=== PATIENT | female | born 1975 | race Caucasian/White ===

== ENCOUNTER 2017-05-28 15:21 | Emergency (ER) | payer SELFPAY ==
[2017-05-28 16:22] LABS: BASOPHILS 0.4 % (0-2); EOSINOPHILS 2.6 % (0-7); HEMOGLOBIN 7.9 g/dL (12-16); IMMATURE GRANULOCYTES 0.3 % (0-5); MCHC 27.2 g/dL (31.0-37.0); MONOCYTES 6.1 % (2-11); NEUTROPHILS 52.6 % (40-80); PLATELET COUNT 700 10x3/uL (130-400); RBC 5.09 10x6/uL (4.00-5.40); RDW 20.7 % (11.5-14.5); WBC 10.3 10x3/uL (4.8-10.8)
[2017-05-28 16:28] LABS: MCH 15.5 pg (26.0-34.0)
[2017-05-28 16:39] LABS: ALBUMIN 4.4 g/dL (3.4-5.0); BILIRUBIN - TOTAL 0.27 mg/dL (0.2-1.3); CALCIUM 8.8 mg/dL (8.5-10.1); CARBON DIOXIDE 20.7 mmol/L (21.0-32.0); POTASSIUM - SERUM 3.7 mmol/L (3.5-5.1); PROTEIN - SERUM 7.9 g/dL (6.4-8.2)
[2017-07-16 09:48] VITALS: BMI 20.8
== END 2017-05-28 20:31 | disposition home or self-care (01) ==
LOC: D.ER 15:21
PROVIDERS: Family Medicine
DX: R50.9 Fever, unspecified (principal); R05 Cough; R07.81 Pleurodynia; Z86.2 Personal history of diseases of the blood and blood-forming organs and certain disorders involving the immune mechanism

== ENCOUNTER 2017-07-13 20:38 | Inpatient (IN) | payer MEDICAID ==
[~2017-07-13] VITALS: Ht 165.1 cm; Wt 56.7 kg
--- NOTE | ~2017-07-13 | HP ---
PATIENT: MALLIKA OJEDA MEDICAL RECORD: [id number] ACCOUNT: [id number] LOCATION:[facility].E10- : 71 ADMISSION DATE: 07/14/17 HISTORY AND PHYSICAL EXAMINATION HISTORY OF PRESENT ILLNESS: Ms. Ojeda is a 41-year-old white female that presents to the Emergency Room complaining of severe abdominal pain. She has had multiple abdominal surgeries for hernia repair with colon resection in the years. She is found to be severely anemic with a hemoglobin of 7.0, ER has transferred her couple of units. She has a history of chronic anemia and has had multiple GI workups in the past, the last was over 8 years ago and was negative. She states that her periods are very light and they only last a day or two, but are regular. She has been complaining of loss of epigastric pain. Due to the abdominal pain, she has been taking large doses of ibuprofen for the last several weeks. She complains of burning in her stomach. She is admitted at this time for a possible upper GI bleed, severe anemia, and evaluation of her abdominal pain. PAST MEDICAL HISTORY: Significant for chronic anemia. She has also had multiple surgeries for ventral hernia with a colon resection. She also has had her right tube and ovary removed. She just recently moved here from the [facility] 2 years ago. ALLERGIES: None known. HOME MEDICATIONS: No prescription meds at this time. SOCIAL HISTORY: The patient does not smoke. She drinks on a social basis. REVIEW OF SYSTEMS: Denies any weight loss. Complains of severe abdominal pain, which comes and goes, ranked it as a 10 upon admission to the ER last night. She has had nausea and vomiting. She said she has noticed some occasional bright red blood in her emesis in the past. No black or tarry stools. She has had some fatigue. PHYSICAL EXAMINATION: GENERAL: Alert and cooperative. HEENT: Sclerae nonicteric. NECK: Soft and supple. HEART: Regular. LUNGS: Clear. ABDOMEN: Soft. Scars from previous abdominal surgeries are noted. There is some midline tenderness. EXTREMITIES: Lower extremities reveal no edema. IMPRESSION: 1. Severe microcytic anemia. 2. Abdominal pain. 3. Heavy NSAID use. PLAN: Admit. Protonix drip. GI consult, if negative, may need hematology consult. See orders for plan. TRANSINT:[id number] Voice Confirmation ID: [id number] DOCUMENT ID: [id number] HISTORY AND PHYSICAL [id number] MALLIKA OJEDA MATTHEW DO at 1714 CC: [id number] DICTATION DATE: 07/14/17 1131 PATIENT SERVICES TECHNICIAN: 07/14/17 [address] [facility] [address] [id number]
--- NOTE | ~2017-07-13 | EC ---
PATIENT:MALLIKA OJEDA DATE OF SERVICE: 07/15/17 SEX: F MEDICAL RECORD: [id number] DATE OF : 71 LOCATION:[facility] AGE OF PATIENT: 41 ADMISSION DATE: 07/15/17 REFERRING PHYSICIAN: INTERPRETING PHYSICIAN: LAKESHA LARIOS MD ECHOCARDIOGRAM REPORT ECHO CHARGES Date: CLINICAL DIAGNOSIS: ECHOCARDIOGRAPHIC MEASUREMENTS (adult normal given) AC root (d.<3.7cm) cm LV Septum d (<1.2 cm> cm Valve Excursion cm LV Septum (systole) cm Left Atria (s.<4.0cm> cm LVPW d(<1.2cm) cm RV (d.<2.3cm) cm LVPW (sytole) cm LV diastole(<5.6CM) cm MV E-F(>70mm/sec) cm LV systole cm LVOT Diameter cm MV exc.(>10mm) cm Est.ejection fraction (50-75%) % DOPPLER: LVIT cm/sec A cm/sec E cm/sec LA cm/sec RVSP mmHg LVOT cm/sec AOP1/2T m/s Asc. Ao cm/sec RVOT cm/sec RA cm/sec PA cm/sec AV Gradient Peak mmHg AV Mean mmHg AV Area cm MV Gradient Peak mmHg MV Mean mmHg MV Area cm COMMENTS: Nurse Orthopaedic: Welder Manufacture: RITU# Pericardial Effusion DATE OF SERVICE: Adequate 2D echo, color flow, spectral Doppler and M-Mode. Borderline LVH. LV internal dimension is normal. Wall motion normal. EF was hyperdynamic greater than 60%. Aortic valve is tricuspid. No evidence of stenosis by Doppler interrogation. Left atrium is dilated at 4.5 cm. Mitral valve shows no prolapse. Trace MR. Right sided chamber size is grossly normal. Trace TR. TRANSINT:[id number] Voice Confirmation ID: [id number] DOCUMENT ID: [id number] ECHOCARDIOGRAM REPORT [id number] MALLIKA OJEDA LAKESHA LARIOS MD at 0826 CC: [id number] DICTATION DATE: 07/16/17 1223 JOINT SEALER: 07/16/17 1233 [place] [address]
[2017-07-13 21:04] LABS: BASOPHILS 0.7 % (0-2); EOSINOPHILS 4.8 % (0-7); HEMATOCRIT 25.3 % (36.0-48.0); IMMATURE GRANULOCYTES 0.1 % (0-5); LYMPHOCYTES 45.1 % (15-50); MCHC 27.7 g/dL (31.0-37.0); MCV 58.7 fL (80.0-100.0); MEAN PLATELET VOLUME 8.4 fL (7.4-10.4); MONOCYTES 8.2 % (2-11); NEUTROPHILS 41.1 % (40-80); RBC 4.31 10x6/uL (4.00-5.40); RDW 20.9 % (11.5-14.5); WBC 7.1 10x3/uL (4.8-10.8)
[2017-07-13 21:13] LABS: APPEARANCE CLEAR (CLEAR); BILIRUBIN NEGATIVE (NEGATIVE); COLOR YELLOW (YELLOW); GLUCOSE NEGATIVE (NEGATIVE); KETONE NEGATIVE (NEGATIVE); NITRITE POSITIVE (NEGATIVE); PROTEIN NEGATIVE (NEGATIVE); UROBILINOGEN NORMAL (NORMAL)
[2017-07-13 21:15] LABS: BACTERIA MANY /hpf (NONE SEEN); EPITHELIAL CELLS 0-5 /hpf (0-5); RED CELLS - URINE 0-5 /hpf (0-5)
[2017-07-13 21:16] LABS: HCG URINE NEGATIVE (NEGATIVE)
[2017-07-13 21:18] LABS: ALBUMIN 3.9 g/dL (3.4-5.0); ALKALINE PHOSPHATASE 44 U/L (46-116); ALT (SGPT) 16 U/L (10-68); AMYLASE - SERUM 40 U/L (25-115); BILIRUBIN - TOTAL 0.15 mg/dL (0.2-1.3); CALC OSMOLALITY 279 mosm/kg (275-300); CALCIUM 8.5 mg/dL (8.5-10.1); CARBON DIOXIDE 21.5 mmol/L (21.0-32.0); CHLORIDE - SERUM 105 mmol/L (98-107); CREATININE - SERUM 0.8 mg/dL (0.6-1.3); GLUCOSE 100 mg/dL (74-106); LIPASE 204 U/L (73-393); POTASSIUM - SERUM 3.8 mmol/L (3.5-5.1); PROTEIN - SERUM 7.2 g/dL (6.4-8.2); SODIUM 140 mmol/L (136-145); UREA NITROGEN 16 mg/dL (7-18); eGFR NON AFRICAN AMERICAN 83 mL/min (90-120)
[2017-07-13 21:22] LABS: MCH 16.2 pg (26.0-34.0); PLATELET COUNT 471 10x3/uL (130-400)
[2017-07-13 22:37] LABS: % SATURATION 2 % (15-55); IRON 9 ug/dl (35-150); TOTAL IRON BIND CAPACITY 362 ug/dl (260-445); UNSAT IRON BIND CAPACITY 353 ug/dl (150-375)
[2017-07-13 22:49] LABS: FERRITIN 3 ng/mL (3-244); LDH 134 U/L (81-234)
[2017-07-14 04:56] LABS: BASOPHILS 0.4 % (0-2); EOSINOPHILS 3.2 % (0-7); HEMATOCRIT 29.3 % (36.0-48.0); HEMOGLOBIN 8.6 g/dL (12-16); IMMATURE GRANULOCYTES 0.1 % (0-5); LYMPHOCYTES 30.3 % (15-50); MCH 18.5 pg (26.0-34.0); MCHC 29.4 g/dL (31.0-37.0); MCV 62.9 fL (80.0-100.0); MEAN PLATELET VOLUME 8.7 fL (7.4-10.4); MONOCYTES 9.7 % (2-11); NEUTROPHILS 56.3 % (40-80); PLATELET COUNT 381 10x3/uL (130-400); RBC 4.66 10x6/uL (4.00-5.40); RDW 24.5 % (11.5-14.5); WBC 13.4 10x3/uL (4.8-10.8)
[2017-07-14 05:07] LABS: CALC OSMOLALITY 280 mosm/kg (275-300); CALCIUM 8.2 mg/dL (8.5-10.1); CARBON DIOXIDE 22.4 mmol/L (21.0-32.0); CHLORIDE - SERUM 108 mmol/L (98-107); CREATININE - SERUM 0.6 mg/dL (0.6-1.3); GLUCOSE 97 mg/dL (74-106); POTASSIUM - SERUM 3.7 mmol/L (3.5-5.1); SODIUM 141 mmol/L (136-145); UREA NITROGEN 13 mg/dL (7-18); eGFR NON AFRICAN AMERICAN > 90 mL/min (90-120)
[2017-07-14 20:51] VITALS: BP 128/64; BMI 20.8
[2017-07-15] VITALS (7 sets, daily range): BP systolic 90–121; BP diastolic 51–75; BMI 20.8
[2017-07-15 06:31] LABS: BASOPHILS 0.4 % (0-2); EOSINOPHILS 3.7 % (0-7); HEMATOCRIT 29.1 % (36.0-48.0); HEMOGLOBIN 8.4 g/dL (12-16); IMMATURE GRANULOCYTES 0.1 % (0-5); LYMPHOCYTES 41.6 % (15-50); MCHC 28.9 g/dL (31.0-37.0); MEAN PLATELET VOLUME 8.7 fL (7.4-10.4); MONOCYTES 10.1 % (2-11); NEUTROPHILS 44.1 % (40-80); PLATELET COUNT 362 10x3/uL (130-400); RBC 4.62 10x6/uL (4.00-5.40); RDW 24.4 % (11.5-14.5)
[2017-07-15 06:35] LABS: MCH 18.2 pg (26.0-34.0); WBC 6.9 10x3/uL (4.8-10.8)
[2017-07-15 06:53] LABS: INR 1.07 (0.85-1.17); PROTIME 13.5 SECONDS (11.6-15.0)
[2017-07-15 06:58] LABS: ALBUMIN 3.3 g/dL (3.4-5.0); ALKALINE PHOSPHATASE 40 U/L (46-116); ALT (SGPT) 13 U/L (10-68); BILIRUBIN - TOTAL 0.38 mg/dL (0.2-1.3); CALC OSMOLALITY 279 mosm/kg (275-300); CALCIUM 8.3 mg/dL (8.5-10.1); CARBON DIOXIDE 23.1 mmol/L (21.0-32.0); CHLORIDE - SERUM 108 mmol/L (98-107); CREATININE - SERUM 0.7 mg/dL (0.6-1.3); GLUCOSE 83 mg/dL (74-106); LIPASE 97 U/L (73-393); POTASSIUM - SERUM 3.6 mmol/L (3.5-5.1); PROTEIN - SERUM 6.1 g/dL (6.4-8.2); SODIUM 141 mmol/L (136-145); UREA NITROGEN 13 mg/dL (7-18); eGFR NON AFRICAN AMERICAN > 90 mL/min (90-120)
[2017-07-15 07:01] LABS: AMYLASE - SERUM 29 U/L (25-115)
[2017-07-15 07:30] LABS: FOLATE (FOLIC ACID) - SERUM 9.8 ng/mL (>3.0)
[2017-07-15] MEDS ORDERED: IBUPROFEN800 MG PO (12:22)
[2017-07-16 00:45] VITALS: BP 99/63
[2017-07-16 04:00] VITALS: BP 102/54
[2017-07-16 05:31] LABS: ALBUMIN 2.9 g/dL (3.4-5.0); ALKALINE PHOSPHATASE 33 U/L (46-116); ALT (SGPT) 12 U/L (10-68); BILIRUBIN - TOTAL 0.17 mg/dL (0.2-1.3); CALC OSMOLALITY 281 mosm/kg (275-300); CALCIUM 7.7 mg/dL (8.5-10.1); CARBON DIOXIDE 22.5 mmol/L (21.0-32.0); CHLORIDE - SERUM 110 mmol/L (98-107); CREATININE - SERUM 0.6 mg/dL (0.6-1.3); GLUCOSE 104 mg/dL (74-106); POTASSIUM - SERUM 3.7 mmol/L (3.5-5.1); PROTEIN - SERUM 5.5 g/dL (6.4-8.2); SODIUM 142 mmol/L (136-145); UREA NITROGEN 11 mg/dL (7-18); eGFR NON AFRICAN AMERICAN > 90 mL/min (90-120)
[2017-07-16 05:35] LABS: BASOPHILS 0.4 % (0-2); EOSINOPHILS 4.1 % (0-7); HEMATOCRIT 26.2 % (36.0-48.0); IMMATURE GRANULOCYTES 0.3 % (0-5); LYMPHOCYTES 43.7 % (15-50); MCHC 28.2 g/dL (31.0-37.0); MCV 63.7 fL (80.0-100.0); MEAN PLATELET VOLUME 9.2 fL (7.4-10.4); MONOCYTES 9.1 % (2-11); NEUTROPHILS 42.4 % (40-80); PLATELET COUNT 353 10x3/uL (130-400); RBC 4.11 10x6/uL (4.00-5.40); WBC 7.3 10x3/uL (4.8-10.8)
[2017-07-16 05:56] LABS: HEMOGLOBIN 7.4 g/dL (12-16)
[2017-07-16 07:57] VITALS: BP 92/53
[2017-07-16 09:48] VITALS: Ht 165.1 cm; Wt 56.7 kg
[2017-07-16 11:47] VITALS: BP 104/43
[2017-07-16 15:46] VITALS: BP 91/52
[2017-07-16 20:00] VITALS: BP 120/56
[2017-07-17] VITALS: BP 97/42
[2017-07-17 04:00] VITALS: BP 94/54
[2017-07-17 05:06] LABS: BASOPHILS 0.7 % (0-2); EOSINOPHILS 4.6 % (0-7); HEMATOCRIT 24.9 % (36.0-48.0); LYMPHOCYTES 52.9 % (15-50); MCHC 28.1 g/dL (31.0-37.0); MCV 64.2 fL (80.0-100.0); MONOCYTES 10.8 % (2-11); PLATELET COUNT 294 10x3/uL (130-400); RBC 3.88 10x6/uL (4.00-5.40); RDW 25.4 % (11.5-14.5); WBC 5.5 10x3/uL (4.8-10.8)
[2017-07-17 06:12] LABS: ALBUMIN 2.7 g/dL (3.4-5.0); ALKALINE PHOSPHATASE 30 U/L (46-116); ALT (SGPT) 15 U/L (10-68); BILIRUBIN - TOTAL 0.14 mg/dL (0.2-1.3); CALC OSMOLALITY 287 mosm/kg (275-300); CALCIUM 7.6 mg/dL (8.5-10.1); CARBON DIOXIDE 22.5 mmol/L (21.0-32.0); CHLORIDE - SERUM 114 mmol/L (98-107); CREATININE - SERUM 0.6 mg/dL (0.6-1.3); GLUCOSE 106 mg/dL (74-106); POTASSIUM - SERUM 3.7 mmol/L (3.5-5.1); PROTEIN - SERUM 5.1 g/dL (6.4-8.2); SODIUM 145 mmol/L (136-145); UREA NITROGEN 9 mg/dL (7-18); eGFR NON AFRICAN AMERICAN > 90 mL/min (90-120)
[2017-07-17 19:36] VITALS: BP 102/60
[2017-07-18] VITALS: BP 129/77
[2017-07-18 04:00] VITALS: BP 96/50
[2017-07-18 06:21] LABS: BASOPHILS 0.7 % (0-2); IMMATURE GRANULOCYTES 0.1 % (0-5); LYMPHOCYTES 44.3 % (15-50); MCHC 29.3 g/dL (31.0-37.0); MEAN PLATELET VOLUME 9.3 fL (7.4-10.4); MONOCYTES 12.7 % (2-11); NEUTROPHILS 37.2 % (40-80); PLATELET COUNT 272 10x3/uL (130-400); RBC 4.49 10x6/uL (4.00-5.40); RDW 26.9 % (11.5-14.5)
[2017-07-18 06:25] LABS: HEMATOCRIT 30.4 % (36.0-48.0); HEMOGLOBIN 8.9 g/dL (12-16); MCH 19.8 pg (26.0-34.0); MCV 67.7 fL (80.0-100.0); WBC 6.9 10x3/uL (4.8-10.8)
[2017-07-18 06:41] LABS: ALBUMIN 2.9 g/dL (3.4-5.0); ALKALINE PHOSPHATASE 41 U/L (46-116); CALCIUM 7.8 mg/dL (8.5-10.1); CARBON DIOXIDE 24.4 mmol/L (21.0-32.0); CHLORIDE - SERUM 112 mmol/L (98-107); CREATININE - SERUM 0.6 mg/dL (0.6-1.3); GLUCOSE 88 mg/dL (74-106); POTASSIUM - SERUM 3.8 mmol/L (3.5-5.1); PROTEIN - SERUM 5.3 g/dL (6.4-8.2); SODIUM 143 mmol/L (136-145); eGFR NON AFRICAN AMERICAN > 90 mL/min (90-120)
[2017-07-18 06:45] LABS: ALT (SGPT) 31 U/L (10-68); CALC OSMOLALITY 281 mosm/kg (275-300); UREA NITROGEN 6 mg/dL (7-18)
[2017-07-18 08:33] VITALS: BP 94/48
[2017-07-18 11:57] VITALS: BP 112/72
[2017-07-18 17:00] VITALS: BP 99/45
[2017-07-18 20:00] VITALS: BP 101/65
[2017-07-19 04:00] VITALS: BP 105/54
[2017-07-19 05:35] LABS: BASOPHILS 0.8 % (0-2); EOSINOPHILS 6.5 % (0-7); HEMATOCRIT 29.5 % (36.0-48.0); HEMOGLOBIN 8.7 g/dL (12-16); IMMATURE GRANULOCYTES 0.1 % (0-5); LYMPHOCYTES 38.3 % (15-50); MCHC 29.5 g/dL (31.0-37.0); MEAN PLATELET VOLUME 9.7 fL (7.4-10.4); MONOCYTES 13.1 % (2-11); NEUTROPHILS 41.2 % (40-80); PLATELET COUNT 266 10x3/uL (130-400); RBC 4.34 10x6/uL (4.00-5.40); RDW 27.3 % (11.5-14.5); WBC 7.6 10x3/uL (4.8-10.8)
[2017-07-19 05:58] LABS: ALBUMIN 2.7 g/dL (3.4-5.0); ALKALINE PHOSPHATASE 43 U/L (46-116); ALT (SGPT) 28 U/L (10-68); CALC OSMOLALITY 283 mosm/kg (275-300); CALCIUM 7.5 mg/dL (8.5-10.1); CARBON DIOXIDE 23.1 mmol/L (21.0-32.0); CHLORIDE - SERUM 112 mmol/L (98-107); CREATININE - SERUM 0.6 mg/dL (0.6-1.3); GLUCOSE 88 mg/dL (74-106); POTASSIUM - SERUM 3.6 mmol/L (3.5-5.1); PROTEIN - SERUM 5.1 g/dL (6.4-8.2); SODIUM 144 mmol/L (136-145); UREA NITROGEN 6 mg/dL (7-18); eGFR NON AFRICAN AMERICAN > 90 mL/min (90-120)
[2017-07-19 08:06] VITALS: BP 121/74
[2017-07-19 13:15] VITALS: BP 120/66
[2017-07-19 16:13] VITALS: BP 110/52
[2017-07-19 22:22] VITALS: BP 104/65
[2017-07-20 04:00] VITALS: BP 101/43
[2017-07-20 05:43] LABS: BASOPHILS 0.4 % (0-2); EOSINOPHILS 4.3 % (0-7); HEMATOCRIT 31.6 % (36.0-48.0); HEMOGLOBIN 9.2 g/dL (12-16); IMMATURE GRANULOCYTES 0.2 % (0-5); LYMPHOCYTES 31.3 % (15-50); MCHC 29.1 g/dL (31.0-37.0); MCV 68.4 fL (80.0-100.0); MONOCYTES 11.1 % (2-11); NEUTROPHILS 52.7 % (40-80); PLATELET COUNT 267 10x3/uL (130-400); RBC 4.62 10x6/uL (4.00-5.40); RDW 27.8 % (11.5-14.5); WBC 9.1 10x3/uL (4.8-10.8)
[2017-07-20 05:52] LABS: MCH 19.9 pg (26.0-34.0)
[2017-07-20 08:17] VITALS: BP 103/54
[2017-07-20 12:35] VITALS: BP 95/48
[2017-07-20] MEDS ORDERED: CARAFATE1 G/10 ML PO (12:40)
[2017-07-20] MEDS ORDERED: PROTONIX40 MG PO (12:41)
== END 2017-07-20 19:38 | disposition home or self-care (01) | DRG 369 ==
LOC: D.ER 20:38 → D.MS 07-14 04:07 → D.EDHOLD 07-14 04:07 → OBSVTIME 07-14 04:07 → D.LD 07-14 04:07 → D.MS 07-15 13:25
PROVIDERS: Family Medicine; Internal Medicine Gastroenterology
PROC: 0DB78ZX Excision of Stomach, Pylorus, Via Natural or Artificial Opening Endoscopic, Diagnostic (ICD-10-PCS; 2017-07-15)
PROC: 0DB38ZX Excision of Lower Esophagus, Via Natural or Artificial Opening Endoscopic, Diagnostic (ICD-10-PCS; principal; 2017-07-15 06:55)
PROC: 0DBP8ZZ Excision of Rectum, Via Natural or Artificial Opening Endoscopic (ICD-10-PCS; 2017-07-17)
DX: K22.6 Gastro-esophageal laceration-hemorrhage syndrome (principal); D62 Acute posthemorrhagic anemia; K22.10 Ulcer of esophagus without bleeding; K90.9 Intestinal malabsorption, unspecified; D50.9 Iron deficiency anemia, unspecified; K25.4 Chronic or unspecified gastric ulcer with hemorrhage; K29.60 Other gastritis without bleeding; K29.80 Duodenitis without bleeding; I48.0 Paroxysmal atrial fibrillation; N85.6 Intrauterine synechiae; I34.0 Nonrheumatic mitral (valve) insufficiency; K64.8 Other hemorrhoids; K62.1 Rectal polyp